=== PATIENT | female | born 1970 | race American Indian/Alaskan Native ===

== ENCOUNTER 2016-11-07 10:47 | Outpatient (CLI) | payer BC ==
--- NOTE | 2016-11-07 12:28 | Mammography Report ---
LEFT DIGITAL DIAGNOSTIC MAMMOGRAM with CAD and LEFT BREAST ULTRASOUND: 11/07/16 10:47:00 CLINICAL: Left breast lump. COMPARISON:07/04/16 mammogram and left breast ultrasound. FINDINGS: The breast is heterogeneously dense with a stable fibroglandular pattern.No mass, architectural distortion or suspicious calcifications. Ultrasound of the left breast (including all four quadrants and the retroareolar area) was performed. An isoechoic slightly irregular mass with mild architectural distortion at 1 o'clock 5 cm from the nipple measures approximately 1.0 x 1.0 x 1.0 cm. It correlates with where a lump has been felt. IMPRESSION: A 1 cm subtle and mildly suspicious mass at 1 o'clock 5 cm from the nipple. BI-RADS CATEGORY: 4--Suspicious RECOMMENDATION: Ultrasound guided needle core biopsy of the left breast. I discussed the findings and the recommendation for needle core biopsy of the left breast with the patient at the time of the examination. ACR BI-RADS MAMMOGRAPHIC CODES: 0 = Needs additional imaging evaluation; 1 = Negative; 2 = Benign; 3 = Probably benign; 4 = Suspicious; 5 = Malignant; 6 = Known biopsy-proven malignancy COMMENT: 1. Dense breast tissue, i.e., adenosis, fibrocystic changes, etc., may obscure an underlying neoplasm. 2. Approximately 10% of cancers are not detected with mammography. 3. A negative mammography report should not delay biopsy if a clinically suspicious mass is present. COMMENT: Patient follow-up letters are generated by our [employer] application.
== END 2016-11-07 10:48 | disposition home or self-care (01) ==
LOC: SPVWC 10:47
PROVIDERS: ATTEND Obstetrics & Gynecology Gynecology
DX: N63 Unspecified lump in breast (principal)
CPT/HCPCS: 76641; G0206

== ENCOUNTER 2016-11-17 08:14 | Outpatient (CLI) | payer BC ==
--- NOTE | 2016-11-17 09:32 | Mammography Report ---
LEFT DIGITAL DIAGNOSTIC MAMMOGRAM: 11/17/16 08:14:00 CLINICAL: For clip placement immediately status post ultrasound biopsy. COMPARISON:11/07/16 FINDINGS: A biopsy clip is now identified in the upper outer quadrant. IMPRESSION: Concordant clip placement status post ultrasound biopsy. BI-RADS CATEGORY: 4--Suspicious Pathology pending.
--- NOTE | 2016-11-17 09:40 | Ultrasound Report ---
VACUUM ASSISTED ULTRASOUND GUIDED NEEDLE CORE BIOPSY WITH CLIP PLACEMENT LEFT BREAST: 11/17/16 08:14:00 CLINICAL: Palpable left breast mass at 1 o'clock 5 cm from the nipple. COMPARISON :11/07/16 FINDINGS: The procedure was explained to the patient and informed consent was obtained. Ultrasound demonstrated the previously described mass. The skin was prepped with Betadine and anesthetized with 1% lidocaine. Vacuum-assisted needle core biopsy was performed through a small dermatotomy using ultrasound guidance, 2% lidocaine with epinephrine for deep anesthesia and a 13-gauge Elite biopsy probe. Imaging demonstrated satisfactory sampling. Multiple cores were obtained and placed in formalin. An 11-gauge Mammostar barbell shape clip was deployed within the lesion. Hemostasis was achieved with minimal pressure and a sterile dressing was applied. The patient tolerated the procedure well and there were no apparent complications. A two view mammogram demonstrated concordant clip placement. The patient left the department in good condition and was given instructions for wound care and follow up. IMPRESSION: Uncomplicated vacuum-assisted ultrasound core biopsy and clip placement left breast.
== END 2016-11-17 08:15 | disposition home or self-care (01) ==
LOC: SPVWC 08:14
PROVIDERS: ATTEND Obstetrics & Gynecology Gynecology
DX: N63 Unspecified lump in breast (principal)
CPT/HCPCS: 19083; 88305; A4648; G0206; 88361

== ENCOUNTER 2016-11-21 09:45 | Outpatient (CLI) | payer BC ==
--- NOTE | 2016-11-24 10:07 | Magnetic Resonance Report ---
BILATERAL BREAST MRI WITHOUT AND WITH CONTRAST: 11/21/16 09:45:00 CLINICAL: Newly diagnosed left breast cancer. Status post left ultrasound guided needle biopsy on 11/17/16 with pathologic diagnosis of invasive ductal carcinoma, Rebeca grade I/III. COMPARISON:07/04/16 bilateral mammogram. TECHNIQUE: Axial 1.0-mm T1 without, axial high resolution 2.0-mm T2 and axial 1.0-mm dynamic Vibrant high-resolution postcontrast T1 fat saturation sequences on a 1.5 Danelle magnet. The examination was performed with an 8 channel dedicated Sentinelle breast coil. Post processing with CAD and subtraction was performed by me on an [employer] workstation. 18.0 cc of Multihance was injected without incident for the contrast portion of the exam. Consent was obtained prior to the administration of the contrast. FINDINGS: Right: Moderate background parenchymal enhancement. No mass or suspicious enhancement of the right breast. No suspicious right axillary or right internal mammary lymph nodes. Left: Moderate background parenchymal enhancement. The known left breast cancer is an irregular enhancing mass in the upper outer quadrant 7.2 cm from the nipple and 6.1 cm from the chest wall. It measures 2.9 x 1.6 x 1.2 cm and demonstrates heterogeneous enhancement with 152% peak enhancement and 8% type III washout. No other mass or suspicious enhancement of the left breast. A 1.8 cm level I axillary lymph node is suspicious with focal thickening of the cortex measuring 6 mm. No other suspicious lymph nodes. IMPRESSION: 1. Known 2.9 cm left breast cancer. 2. No other suspicious lesions of either breast. 3. A single left axillary level I lymph node is suspicious. Recommend ultrasound guided needle biopsy. RIGHT BI-RADS 1 -- Negative LEFT BI-RADS 6 -- Known Cancer
== END 2016-11-21 09:46 | disposition home or self-care (01) ==
LOC: SPVIMAG 09:45
PROVIDERS: ATTEND Surgery
DX: C50.912 Malignant neoplasm of unspecified site of left female breast (principal)
CPT/HCPCS: 0159T; A9577; C8908; 77059

== ENCOUNTER 2016-11-25 10:55 | Outpatient (CLI) | payer BC ==
--- NOTE | 2016-11-25 13:39 | Ultrasound Report ---
ULTRASOUND GUIDED NEEDLE CORE BIOPSY OF A LEFT AXILLARY LYMPH NODE WITH CLIP PLACEMENT : 11/25/16 CLINICAL: Newly diagnosed left breast cancer and a suspicious left axillary axillary lymph node. COMPARISON :MRI 11/20/16 FINDINGS: The procedure was explained to the patient and informed consent was obtained. The skin in the axilla was prepped with Betadine and anesthetized with 1% lidocaine. Ultrasound localized the suspicious lymph node and ultrasound guided needle core biopsy of the lymph node was performed through a small dermatotomy using 2% lidocaine with epinephrine for deep anesthesia and a 18-gauge Achieve biopsy device. Multiple samples were obtained and placed in formalin. A clip was deployed within the lymph node. Hemostasis was achieved with minimal pressure to the side. The patient tolerated the procedure well and there were no apparent complications. She was discharged in good condition and was given instructions for wound care and followup. IMPRESSION: Uncomplicated ultrasound-guided needle core biopsy of a left axillary lymph node.
== END 2016-11-25 10:56 | disposition home or self-care (01) ==
LOC: SPVIMAG 10:55
PROVIDERS: ATTEND Surgery
DX: C50.912 Malignant neoplasm of unspecified site of left female breast (principal)
CPT/HCPCS: 38505; 76942; 88305; A4648

== ENCOUNTER 2016-12-24 07:01 | Day surgery (SDC) | payer BC ==
[2016-12-24] MEDS ORDERED: XYLOCAINE 1% 20 mL ONE ×2 (07:51→09:27)
[2016-12-24] MEDS ORDERED: XYLOCAINE MPF 2% ONE (08:18)
[2016-12-24] MEDS ORDERED: DIPRIVAN 10 MG/ML IV ONE (08:18)
[2016-12-24] MEDS ORDERED: DILAUDID ONE (08:18)
[2016-12-24] MEDS ORDERED: MARCAINE 0.25% INFILTRATI ONE ×2 (09:27→10:12)
[2016-12-24] MEDS ORDERED: PEPCID PO NR (09:30)
[2016-12-24] MEDS ORDERED: VERSED IV NR (09:30)
[2016-12-24] MEDS ORDERED: NACL 0.9% 1000 ML 1,000 ML IV SCH (09:30)
--- NOTE | 2016-12-24 09:43 | Anesthesia Day of Surgery ---
Anesthesia Day of Surgery - Day of Surgery Patient Examined: Yes Patient H&P Reviewed: Yes Patient is NPO: Yes
[2016-12-24] MEDS ORDERED: DILAUDID IV PRN (09:44)
--- NOTE | 2016-12-24 09:44 | Anesthesia Consultation ---
Anesthesia Consult and Med Hx Date of service: 12/24/16 - Airway Anesthetic Teeth Evaluation: Good, Caps ROM Head & Neck: Adequate Mental/Hyoid Distance: Adequate Mallampati Class: Class II Intubation Access Assessment: Probably Good - Pulmonary Exam CTA: Yes - Cardiac Exam Cardiac Exam: RRR - Pre-Operative Health Status ASA Pre-Surgery Classification: ASA2 Proposed Anesthetic Plan: General - Pulmonary Hx Smoking: No Hx Sleep Apnea: No - Cardiovascular System Hx Hypertension: Yes (FOR 5 YRS, DR. JW MATTHEWS - PCP) - Central Nervous System Hx Seizures: No CVA: No Hx Psychiatric Problems: No - Endocrine Hx Renal Disease: No Hx Insulin Dependent Diabetes: No Hx Thyroid Disease: No - Other Systems Hx Cancer: Yes (LEFT BREAST, DX: 10/2016)
[2016-12-24] MEDS ORDERED: DECADRON ONE (09:59)
[2016-12-24] MEDS ORDERED: ZOFRAN IV PRN (10:00)
[2016-12-24] MEDS ORDERED: TRANSDERM-SCOP TD NR (10:00)
[2016-12-24] MEDS ORDERED: WATER FOR IRRIG STERILE IR ONE (10:12)
[2016-12-24] MEDS ORDERED: XYLOCAINE 1% 20 mL INFILTRATI ONE (10:12)
[2016-12-24] MEDS ORDERED: ePHEDrine SULFATE ONE (10:34)
[2016-12-24] MEDS ORDERED: NACL 0.9% 1000 ML 1,000 ML ONE (11:10)
--- NOTE | 2016-12-24 11:13 | Mammography Report ---
NEEDLE LOCALIZATION AND HOOKWIRE PLACEMENT LEFT BREAST:12/24/16 CLINICAL: Left breast cancer. COMPARISON: 11/17/16 FINDINGS: Using mammographic guidance, 1% lidocaine local anesthesia and sterile technique, a 5.0-cm Brice hookwire was placed from a CC from above approach to localize a biopsy clip. Two views demonstrated satisfactory targeting. The hookwire was deployed and placement was confirmed with an image. The patient tolerated the procedure well and there were no apparent complications. IMPRESSION: Uncomplicated hookwire placement left breast.
--- NOTE | 2016-12-24 11:14 | Mammography Report ---
SPECIMEN RADIOGRAPH LEFT BREAST: 12/24/16 07:01:00 CLINICAL: Surgical excision of a known cancer. FINDINGS: The targeted localizer clip and a mass are identified within the specimen. 2 additional specimens also show portions of the mass. IMPRESSION: Excision of the targeted lesion.
[2016-12-24] MEDS ORDERED: ANCEF/STERILE WATER 2 GM/20 ML IV NR (12:00)
--- NOTE | 2016-12-24 12:21 | Post Anesthesia Evaluation ---
- Post Anesthesia Evaluation Patient Participated: Yes Airway Patent: Yes Stable Respiratory Function: Yes Nausea/Vomiting: No Temp > 96.8F: Yes Pain Manageable: Yes Adequeate Hydration: Yes Anesthesia Complications: No Block Receding Appropriately: Not Applicable Patient on Ventilator: No
--- NOTE | 2016-12-24 12:26 | Short Stay Summary ---
Short Stay Documentation Date of service: 12/24/16 - History H&P: obtained from office - Allergies and Medications Current Medications: Allergies morphine Adverse Reaction (Verified 12/23/16 07:41) Rash Home Medications Medication Instructions Recorded Confirmed Last Taken Type Ergocalciferol [Vitamin D2] 1 cap PO QWEEK 12/23/16 12/23/16 Unknown History Lisinopril [Zestril TAB] 40 mg PO QDAY 12/23/16 12/24/16 12/23/16 09:00 History amLODIPine [Norvasc] 10 mg PO DAILY 12/23/16 12/24/16 12/23/16 09:00 History Ibuprofen [Motrin 800 MG tab] 800 mg PO Q8HR PRN #30 tablet 12/24/16 Unknown Rx Active Medications Cefazolin Sodium (Ancef/Sterile Water 2 Gm/20 Ml) 2 gm IV PREOP NR Stop: 12/24/16 23:00 Hydromorphone HCl (Dilaudid) 0.5 mg IV Q10MIN PRN PRN Reason: Pain , Severe (7-10) Stop: 12/24/16 15:00 Sodium Chloride (Nacl 0.9% 1000 Ml) 1,000 mls @ 75 mls/hr IV DIRECT TASHA Last Admin: 12/24/16 09:27 Dose: 75 mls/hr - Brief post op/procedure progress note Date of procedure: 12/24/16 Pre-op diagnosis: Left breast cancer of the upper outer quadrant Post-op diagnosis: same Procedure: Left needle localization partial mastectomy and SLNB Anesthesia: GETA Findings: Wire and clip present within radiograph specimen; 5 SLNs indentified with clip present in one SLN Surgeon: FREDY DANIELS Estimated blood loss: minimal Pathology: list (left partial mastectomy and SLNB) Specimen disposition: to lab Condition: stable - Disposition Condition at discharge: Good Disposition: DISCHARGED TO HOME OR SELFCARE Short Stay Discharge Plan Activity: other (no heavy lifting) Diet: regular Wound: other (keep incision clean and dry and may shower in 24 hours; no baths, pools or lakes; do not rub or scrub incision) Follow up with: GUILLERMINA JAIME MD [Primary Care Provider] - 7 Days FREDY DANIELS MD [Staff Physician] - 7 Days Prescriptions: Ibuprofen [Motrin 800 MG tab] 800 mg PO Q8HR PRN #30 tablet PRN Reason: Pain
--- NOTE | 2016-12-24 12:34 | Operative Report ---
Operative Report Operative Report: Date of procedure: 12/24/2016 Pre-operative diagnosis: Left breast cancer of the upper outer quadrant Post-operative diagnosis: Same Procedure name(s): Left needle localization partial mastectomy and sentinel lymph node biopsy Surgeon: Pamela Mckinnon M.D. Anesthesia: Gen. Findings: Radiograph specimen with wire and clip present, 5 sentinel lymph nodes with biopsy clip noted within the second sentinel lymph node Complications: None Estimated blood loss: Minimal Disposition: PACU in good condition Indications for operative procedure: This is a 46-year-old premenopausal -[place] lady with newly diagnosed left breast cancer of the upper outer quadrant. Patient diagnosed with stage I left IDCA breast cancer ER/TN positive. Recommendations were to proceed with a partial mastectomy and sentinel lymph node biopsy. Patient wished to proceed with the above procedure. Procedure in detail: The patient was taken to radiology where wire was placed to localize known cancer. Patient was then taken to the operating room and was laid supine. Gen. anesthesia was measured. Left NAC was injected with sulfur colloid radioisotope. The left breast, axilla and arm were prepped and draped in the normal sterile operative fashion. Timeout was performed. Gamma probe was used to identify sentinel lymph node with appropriate marking. The wire was identified as well. A skin incision was made at the axilla through the skin with dissection taken down to the subcutaneous tissues. Axillary fascia was opened. 5 sentinel lymph nodes were appropriately identified and sent to pathology. Radiograph specimen of sentinel lymph nodes with clip noted within the second sentinel lymph node. Hemostasis was noted. Axillary cavity was irrigated and suctioned. Axillary fascia was approximated and closed using interrupted 3-0 Vicryl and the skin brought together and closed using a running 4-0 Monocryl and skin affix. Attention was then taken towards the left breast. The wire was identified of the left upper outer quadrant. A skin incision was made with a 15 blade knife with dissection taken down to the subcutaneous tissues. First began raising of the cephalad flap with removal of the wire from the skin with dissection taken down posteriorly to the pectoralis muscle. Then followed by raising of lateral flap, inferior flap and medial flap with dissection taken down to the pectoralis muscle. The area of concern was appropriately removed posteriorly with the aid of Bovie cautery. The specimen was appropriately marked. Radiograph specimen with wire and clip present. Specimens were then sent to pathology. Hemostasis was obtained with the aid of Bovie cautery. The subcutaneous tissues were anesthetized. Oncoplastic mobilization was then performed for cosmetic closure. The posteior breast tissues were then approximated and closed with interrupted 3-0 Vicryl and the subcutaneous tissue were then approximated and closed with interrupted 3-0 Vicryl and the skin brought together and closed with a running 4-0 Monocryl and skin affix. She tolerated surgery very well and was awakened from anesthesia without any complication and transferred to PACU in good condition.
[2016-12-24] MEDS ORDERED: NORCO 5/325 PO ONE (14:47)
[2016-12-24] MEDS ORDERED: ZOFRAN IV ONE (15:35)
[2016-12-24 16:56] VITALS: BP 141/85
== END 2016-12-24 16:14 | disposition home or self-care (01) ==
LOC: OR 07:01
PROVIDERS: ATTEND Surgery
DX: C50.412 Malignant neoplasm of upper-outer quadrant of left female breast (principal); I10 Essential (primary) hypertension; Z90.710 Acquired absence of both cervix and uterus; Z98.890 Other specified postprocedural states; Z80.1 Family history of malignant neoplasm of trachea, bronchus and lung; Z80.3 Family history of malignant neoplasm of breast; Z17.0 Estrogen receptor positive status [ER+]
CPT/HCPCS: 19281; 19301; 38525; 76098; 78800; 88307; 88341; 88342; 88361; A9541; J0690; J1100; J1170; J2250; J2405; J2704; J7030

== ENCOUNTER 2017-06-30 08:09 | Outpatient (CLI) | payer BC ==
--- NOTE | 2017-06-30 08:41 | Mammography Report ---
BILATERAL DIGITAL DIAGNOSTIC MAMMOGRAM WITH CAD: 06/30/17 08:09:00 CLINICAL: Left breast cancer status post left partial mastectomy and radiation therapy within the last year. COMPARISON:11/17/16 FINDINGS: The breasts are heterogeneously dense, which may obscure small masses. The left breast is smaller and more dense than the right with benign upper outer postsurgical scar. Minimal skin thickening of the left breast. No mass, suspicious architectural distortion or suspicious calcifications. IMPRESSION: No mammographic evidence of malignancy. BI-RADS CATEGORY: 2 -- Benign RECOMMENDATION: Routine mammographic screening in one year. COMMENT: Patient follow-up letters are generated via our [employer] application.
== END 2017-06-30 08:10 | disposition home or self-care (01) ==
LOC: SPVWC 08:09
PROVIDERS: ATTEND Surgery
DX: R92.8 Other abnormal and inconclusive findings on diagnostic imaging of breast (principal); Z85.3 Personal history of malignant neoplasm of breast; Z90.12 Acquired absence of left breast and nipple
CPT/HCPCS: 77066; G0204

== ENCOUNTER 2017-12-01 09:18 | Outpatient (CLI) | payer BC ==
--- NOTE | 2017-12-01 10:40 | Mammography Report ---
LEFT DIGITAL DIAGNOSTIC MAMMOGRAM WITH CAD: 12/01/17 09:18:00 CLINICAL: Breast cancer survivor status post left mastectomy with radiation therapy within the last year. COMPARISON:06/30/17 FINDINGS: The breast is heterogeneously dense, which may obscure small masses. Stable upper outer postsurgical scar. A lower outer biopsy clip. No mass, suspicious architectural distortion or suspicious calcifications. IMPRESSION: No mammographic evidence of malignancy. BI-RADS CATEGORY: 2 -- Benign RECOMMENDATION: Routine mammographic screening. ACR BI-RADS MAMMOGRAPHIC CODES: 0 = Needs additional imaging evaluation; 1 = Negative; 2 = Benign; 3 = Probably benign; 4 = Suspicious; 5 = Malignant; 6 = Known biopsy-proven malignancy COMMENT: 1. Dense breast tissue, i.e., adenosis, fibrocystic changes, etc., may obscure an underlying neoplasm. 2. Approximately 10% of cancers are not detected with mammography. 3. A negative mammography report should not delay biopsy if a clinically suspicious mass is present. COMMENT: Patient follow-up letters are generated via our [employer] application.
== END 2017-12-01 09:19 | disposition home or self-care (01) ==
LOC: SPVWC 09:18
PROVIDERS: ATTEND Surgery
DX: Z08 Encounter for follow-up examination after completed treatment for malignant neoplasm (principal); Z90.12 Acquired absence of left breast and nipple

== ENCOUNTER 2019-01-02 03:56 | Emergency (ER) | payer MEDICAID ==
--- NOTE | 2019-01-02 04:47 | XRay Report ---
PROCEDURE: XR CHEST ROUTINE 2V TECHNIQUE: PA and lateral chest radiographs were obtained. HISTORY: SOB COMPARISONS: None. FINDINGS: Heart: Normal. Mediastinum/Vessels: Normal. Lungs/Pleural space: Normal. Bony thorax: No acute osseous abnormality. IMPRESSION: Normal examination. This document is electronically signed by Juan A San MD., January 02 2019 04:45:22 AM ET
[2019-01-02 04:55] LABS: Bacteria,Urine 1+ /HPF (Negative); Bilirubin,Urine NEG (Negative); Blood,Urine NEG (Negative); Color,Urine Yellow (Yellow); Mucus,Urine FEW /HPF; Protein,Urine <15 mg/dL mg/dL (Negative)
[2019-01-02 04:56] LABS: Basophils # (Auto) 0.1 K/mm3 (0.0-0.1); Basophils % (Auto) 1.3 % (0.0-1.8); Eosinophils % (Auto) 13.9 % (0.0-4.3); Hematocrit 43.1 % (30.3-42.9); Hemoglobin 15.1 gm/dl (10.1-14.3); Lymphocytes # (Auto) 2.2 K/mm3 (1.2-5.4); Lymphocytes % (Auto) 29.5 % (13.4-35.0); Mean Corpuscular HGB Conc 35 % (30-34); Mean Corpuscular Volume 88 fl (79-97); Monocytes # (Auto) 0.6 K/mm3 (0.0-0.8); Monocytes % (Auto) 8.4 % (0.0-7.3); Platelet Count 279 K/mm3 (140-440); Red Blood Count 4.91 M/mm3 (3.65-5.03); Red Cell Distribution Width 14.5 % (13.2-15.2)
[2019-01-02 05:19] LABS: Alanine Aminotransferase 21 units/L (7-56); Albumin 3.8 g/dL (3.9-5); BUN/Creatinine Ratio 16; Blood Urea Nitrogen 14 mg/dL (7-17); Hemolysis Index 14
[2019-01-02] MEDS ORDERED: K-DUR PO ONE (05:35)
--- NOTE | 2019-01-02 05:50 | Cat Scan Report ---
PROCEDURE: CT ABDOMEN PELVIS WO CON TECHNIQUE: Routine axial imaging was obtained of the abdomen and pelvis without oral or IV contrast. Sagittal and coronal reconstructions reviewed. HISTORY: left flank pain COMPARISONS: None FINDINGS: The lung bases are clear. Pleural fluid is not seen. The liver, gallbladder and biliary tree appear normal. The pancreas, spleen and adrenal glands appear normal. The kidneys show no evidence of stones or hydronephrosis. The bowel loops are normal in taryn jose ramon and course. The appendix is not seen with certainty. There is no evidence of free fluid or adenop athy. In the pelvis the bladder appears normal. The uterus has been removed. There are phleboliths al kylee the floor the pelvis. The skeletal structures reveal facet arthropathy changes in the lumbar spin e. IMPRESSION: No acute process in the abdomen and pelvis. No evidence renal stones or hydronephrosis. Hysterectomy. Appendix not seen. No evidence of any inflammatory process in the right lower quadrant.. This document is electronically signed by Juan A San MD., January 02 2019 05:48:33 AM ET
--- NOTE | 2019-01-02 06:14 | Emergency Department Report ---
ED General Adult HPI - General Chief complaint: Abdominal Pain Stated complaint: LEFT SIDE BACK PAIN/SOB Time Seen by Provider: 01/02/19 06:12 Source: patient Mode of arrival: Ambulatory Limitations: No Limitations - History of Present Illness Initial comments: 48-year-old female reports a moderate left lower flank pain which augments on movement. She's had it for a week. Does not further radiate. She does not complain of dysuria. He has no history of kidney stones. This been no nausea or vomiting. She denies any respiratory symptoms. -: Gradual, week(s) Location: left (flank) Radiation: non-radiation Quality: aching Consistency: intermittent Improves with: none Worsens with: movement Associated Symptoms: denies other symptoms Treatments Prior to Arrival: none - Related Data Home Medications Medication Instructions Recorded Confirmed Last Taken Ergocalciferol [Vitamin D2] 1 cap PO QWEEK 12/23/16 12/23/16 Unknown Lisinopril [Zestril TAB] 40 mg PO QDAY 12/23/16 12/24/16 12/23/16 09:00 amLODIPine [Norvasc] 10 mg PO DAILY 12/23/16 12/24/16 12/23/16 09:00 Previous Rx's Medication Instructions Recorded Last Taken Type Ibuprofen [Motrin 800 MG tab] 800 mg PO Q8HR PRN #30 tablet 12/24/16 Unknown Rx Potassium Chloride [Klor-Con 8] 8 meq PO QDAY #30 tablet 01/02/19 Unknown Rx traMADol [Ultram] 50 mg PO Q6HR PRN #14 tablet 01/02/19 Unknown Rx Allergies Allergy/AdvReac Type Severity Reaction Status Date / Time morphine AdvReac Rash Verified 12/23/16 07:41 ED Review of Systems ROS: Stated complaint: LEFT SIDE BACK PAIN/SOB Other details as noted in HPI Constitutional: denies: chills, fever Eyes: denies: eye pain, eye discharge, vision change ENT: denies: ear pain, throat pain Respiratory: denies: cough, shortness of breath, wheezing Cardiovascular: denies: chest pain, palpitations Endocrine: no symptoms reported Gastrointestinal: denies: abdominal pain, nausea, diarrhea Genitourinary: as per HPI. denies: urgency, dysuria, discharge Musculoskeletal: as per HPI, back pain. denies: joint swelling, arthralgia Skin: denies: rash, lesions Neurological: denies: headache, weakness, paresthesias Psychiatric: denies: anxiety, depression Hematological/Lymphatic: denies: easy bleeding, easy bruising ED Past Medical Hx - Past Medical History Previous Medical History?: Yes Hx Hypertension: Yes Hx Pulmonary Embolism: Yes (IN 2009) Hx Renal Disease: No Hx of Cancer: Yes (Left Lumpectomy) Hx Seizures: No Hx HIV: No - Surgical History Past Surgical History?: Yes Hx Breast Surgery: Yes (LEFT BREAST BX 10/2016) Additional Surgical History: Hysterectomy - Social History Smoking Status: Never Smoker - Medications Home Medications: Home Medications Medication Instructions Recorded Confirmed Last Taken Type Ergocalciferol [Vitamin D2] 1 cap PO QWEEK 12/23/16 12/23/16 Unknown History Lisinopril [Zestril TAB] 40 mg PO QDAY 12/23/16 12/24/16 12/23/16 09:00 History amLODIPine [Norvasc] 10 mg PO DAILY 12/23/16 12/24/16 12/23/16 09:00 History Ibuprofen [Motrin 800 MG tab] 800 mg PO Q8HR PRN #30 tablet 12/24/16 Unknown Rx Potassium Chloride [Klor-Con 8] 8 meq PO QDAY #30 tablet 01/02/19 Unknown Rx traMADol [Ultram] 50 mg PO Q6HR PRN #14 tablet 01/02/19 Unknown Rx ED Physical Exam - General Limitations: No Limitations General appearance: alert, in no apparent distress - Head Head exam: Present: atraumatic, normocephalic - Eye Eye exam: Present: normal appearance - ENT ENT exam: Present: mucous membranes moist - Neck Neck exam: Present: normal inspection. Absent: tenderness, meningismus - Respiratory Respiratory exam: Present: normal lung sounds bilaterally. Absent: respiratory distress - Cardiovascular Cardiovascular Exam: Present: regular rate, normal rhythm. Absent: systolic murmur, diastolic murmur, rubs, gallop - GI/Abdominal GI/Abdominal exam: Present: soft, normal bowel sounds. Absent: distended, tenderness, guarding, rebound, rigid - Extremities Exam Extremities exam: Present: normal inspection, normal capillary refill. Absent: calf tenderness - Back Exam Back exam: Present: normal inspection, tenderness (mild left lower flank), muscle spasm. Absent: CVA tenderness (R), CVA tenderness (L), paraspinal tenderness, vertebral tenderness - Neurological Exam Neurological exam: Present: alert, oriented X3, CN II-XII intact, normal gait. Absent: motor sensory deficit - Psychiatric Psychiatric exam: Present: normal affect, normal mood - Skin Skin exam: Present: warm, dry, intact, normal color. Absent: rash ED Course Vital Signs 01/02/19 01/02/19 01/02/19 04:12 05:11 05:13 Temperature 98.7 F Pulse Rate 88 58 L Respiratory 20 16 16 Rate Blood Pressure 127/82 O2 Sat by Pulse 100 99 100 Oximetry 01/02/19 01/02/19 01/02/19 05:31 06:00 06:30 Temperature Pulse Rate 69 83 Respiratory 13 19 Rate Blood Pressure 118/74 123/81 127/82 O2 Sat by Pulse 99 100 Oximetry 01/02/19 07:00 Temperature Pulse Rate 72 Respiratory 15 Rate Blood Pressure 128/76 O2 Sat by Pulse 98 Oximetry ED Medical Decision Making - Lab Data Result diagrams: 01/02/19 04:47 01/02/19 04:47 Laboratory Results - last 24 hr 01/02/19 01/02/19 01/02/19 04:33 04:47 04:47 WBC 7.6 RBC 4.91 Hgb 15.1 H Hct 43.1 H MCV 88 MCH 31 MCHC 35 H RDW 14.5 Plt Count 279 Lymph % (Auto) 29.5 [place] % (Auto) 8.4 H Eos % (Auto) 13.9 H Baso % (Auto) 1.3 Lymph # 2.2 [place] # 0.6 Eos # 1.0 H Baso # 0.1 Seg Neutrophils % 46.9 Seg Neutrophils # 3.5 Sodium 140 Potassium 3.2 L Chloride 100.1 Carbon Dioxide 26 Anion Gap 17 BUN 14 Creatinine 0.9 Estimated GFR > 60 BUN/Creatinine Ratio 16 Glucose 108 H Calcium 9.0 Total Bilirubin 0.20 AST 16 ALT 21 Alkaline Phosphatase 168 H Total Protein 7.6 Albumin 3.8 L Albumin/Globulin Ratio 1.0 Urine Color Yellow Urine Turbidity Slightly-cloudy Urine pH 6.0 Ur Specific [place] 1.027 Urine Protein <15 mg/dl Urine Glucose (UA) Neg Urine Ketones Neg Urine Blood Neg Urine Nitrite Neg Urine Bilirubin Neg Urine Urobilinogen 4.0 Ur Leukocyte Esterase Neg Urine WBC (Auto) 5.0 Urine RBC (Auto) 4.0 U Epithel Cells (Auto) 11.0 Urine Bacteria (Auto) 1+ Urine Mucus Few - Radiology Data Radiology results: report reviewed CT of the abdomen and no acute process - Medical Decision Making Urine appears contaminated and it will not be treated. Critical care attestation.: If time is entered above; I have spent that time in minutes in the direct care of this critically ill patient, excluding procedure time. ED Disposition Clinical Impression: Left flank pain, Hypokalemia Disposition: TO HOME OR SELFCARE Is pt being admited?: No Does the pt Need Aspirin: No Condition: Stable Instructions: Abdominal Pain (ED), Hypokalemia (ED) Additional Instructions: We are potassium was somewhat low so I will give you a potassium supplement. Follow-up on this with your primary care physician is recommended. Follow-up on your blood pressure and back pain is also recommended. Return any acute change or worsening symptoms. Prescriptions: Potassium Chloride [Klor-Con 8] 8 meq PO QDAY #30 tablet traMADol [Ultram] 50 mg PO Q6HR PRN #14 tablet PRN Reason: Pain Referrals: MILE SAHNI MD [Primary Care Provider] - 3-5 Days Time of Disposition: 07:18
[2019-01-02] MEDS ORDERED: TORADOL IM ONE (06:33)
[2019-01-02 07:02] VITALS: BP 128/76
== END 2019-01-02 07:27 | disposition home or self-care (01) ==
LOC: ED 03:56
DX: R10.9 Unspecified abdominal pain (principal); E87.6 Hypokalemia; I10 Essential (primary) hypertension; Z86.711 Personal history of pulmonary embolism; Z90.710 Acquired absence of both cervix and uterus; Z88.6 Allergy status to analgesic agent
CPT/HCPCS: 36415; 71046; 74176; 80053; 81001; 85025; 93005; 93010; 96372; 99284; J1885

== ENCOUNTER 2019-01-04 13:21 | Emergency (ER) | payer MEDICAID ==
[2019-01-04 13:29] VITALS: BP 160/97
--- NOTE | 2019-01-04 13:31 | Emergency Department Report ---
Blank Doc - Documentation Documentation: 48 y o female presents to ED cc of vomitting x 5 episodes x 2days states last food was thursday labs, ACC eval
[2019-01-04 14:24] LABS: Basophils # (Auto) 0.1 K/mm3 (0.0-0.1); Basophils % (Auto) 0.7 % (0.0-1.8); Eosinophils # (Auto) 0.1 K/mm3 (0.0-0.4); Eosinophils % (Auto) 1.3 % (0.0-4.3); Hematocrit 43.3 % (30.3-42.9); Hemoglobin 14.7 gm/dl (10.1-14.3); Lymphocytes # (Auto) 1.3 K/mm3 (1.2-5.4); Lymphocytes % (Auto) 15.3 % (13.4-35.0); Mean Corpuscular HGB Conc 34 % (30-34); Mean Corpuscular Volume 88 fl (79-97); Monocytes # (Auto) 0.3 K/mm3 (0.0-0.8); Monocytes % (Auto) 3.2 % (0.0-7.3); Platelet Count 278 K/mm3 (140-440); Red Blood Count 4.95 M/mm3 (3.65-5.03); Red Cell Distribution Width 14.6 % (13.2-15.2)
[2019-01-04 14:33] LABS: BUN/Creatinine Ratio 20; Blood Urea Nitrogen 16 mg/dL (7-17); Calcium 9.6 mg/dL (8.4-10.2); Hemolysis Index 18
[2019-01-04 15:26] LABS: Bacteria,Urine 1+ /HPF (Negative); Bilirubin,Urine NEG (Negative); Blood,Urine NEG (Negative); Color,Urine Yellow (Yellow); Mucus,Urine 3+ /HPF; Urobilinogen,Urine < 2.0 mg/dL (<2.0)
== END 2019-01-04 18:59 | disposition home or self-care (01) ==
LOC: ED 13:21
DX: R11.10 Vomiting, unspecified (principal); Z88.5 Allergy status to narcotic agent; Z53.21 Procedure and treatment not carried out due to patient leaving prior to being seen by health care provider
CPT/HCPCS: 36415; 80048; 81001; 83690; 85025